=== PATIENT | female | born 1990 | race Caucasian/White ===

== ENCOUNTER 2020-07-17 21:08 | Emergency (ER) | payer MEDICAID ==
[~2020-07-17] VITALS: Ht 162.6 cm; Wt 77.1 kg
--- NOTE | 2020-07-17 21:13 | NUR ---
Patient to ER bed 3 to gown for evaluation. Side rails up. Report given to TONY PEREZ.
[2020-07-17 21:14] VITALS: BP_SYST 122
--- NOTE | 2020-07-17 21:25 | NUR ---
DR FALL IN TO ASSESS. PT MOANING,RESTLESS, C/O ABD PAIN
[2020-07-17 21:28] LABS: BILIRUBIN,URINE NEGATIVE (NEGATIVE); BLOOD, URINE NEGATIVE (NEGATIVE); COLOR,URINE YELLOW (YELLOW); GLUCOSE,URINE NEGATIVE (NEGATIVE); KETONES,URINE 2+ (NEGATIVE); LEUKOCYTE ESTERASE ,URINE NEGATIVE (NEGATIVE); NITRITE, URINE NEGATIVE (NEGATIVE); PH,URINE 8.5 (5.0-8.0); PROTEIN URINE TRACE (NEGATIVE)
[2020-07-17] MEDS ORDERED: MORPHINE 4 MG/ML INJ. SYRINGE IVP ONE (21:30)
[2020-07-17] MEDS ORDERED: ONDANSETRON HCL 4 MG/2 ML VIAL IVP ONE (21:30)
[2020-07-17] MEDS ORDERED: NACL 0.9% 1,000 ML IV SCH (21:30)
--- NOTE | 2020-07-17 21:30 | NUR ---
MEDICATED ORDERED, ON MONITOR, RESP UNLABORED, SKIN WARM AND DRY. COMMUNICATES CLEARLY IN FULL COMPLETE SENTNECES
[2020-07-17 21:32] LABS: WHITE BLOOD COUNT (AUTO) 10.7 K/uL (4.8-10.8)
[2020-07-17 21:37] LABS: CLARITY/URINE HAZY (CLEAR)
[2020-07-17 21:38] LABS: RBC,URINE NONE SEEN /HPF (0-3)
[2020-07-17 21:39] LABS: BASOPHILS % (AUTO) 0.3 % (0.0-2.0); EOSINOPHILS % (AUTO) 0.4 % (0.0-4.0); HEMATOCRIT 39.7 % (36-48); HEMOGLOBIN 13.2 g/dL (12.0-16.0); LYMPHOCYTES # (AUTO) 1.1 K/uL (1.0-5.5); LYMPHOCYTES % (AUTO) 9.9 % (20.5-51.5); MEAN CORPUSCULAR HEMOGLOBIN 29 pg (27-31); MEAN CORPUSCULAR HGB CONC 33 % (32-36); MEAN CORPUSCULAR VOLUME 88 fL (79.0-98.0); MONOCYTES # (AUTO) 0.7 K/uL (0.0-1.0); MONOCYTES % (AUTO) 6.2 % (1.7-9.3); NEUTROPHILS # (AUTO) 8.9 K/uL (1.8-7.7); NEUTROPHILS % (AUTO) 83.2 % (40.0-70.0); PLATELET COUNT (AUTO) 224 K/uL (130-430); RED BLOOD CELL COUNT(AUTO) 4.52 MIL/uL (4.2-6.2); RED CELL DISTRIBUTION WIDTH 13.3 % (9.0-15.0)
[2020-07-17 21:39] LABS: BACTERIA,URINE FEW /HPF (None Seen); MUCUS,URINE None Seen /LPF (None Seen); URINE AMORPHOUS PHOSPHATES 2+ /HPF (None Seen); WBC,URINE 0-3 /HPF (0-3)
[2020-07-17 21:45] LABS: CALCIUM 9.9 mg/dL (8.4-11.0); CREATININE 0.85 mg/dL (0.55-1.30); POTASSIUM 3.3 mmol/L (3.5-5.1)
[2020-07-17 21:51] LABS: ALBUMIN 4.1 g/dL (3.4-4.8); TOTAL BILIRUBIN 0.4 mg/dL (0.0-1.0)
--- NOTE | 2020-07-17 22:00 | NUR ---
RESTING COMFORTABLE, REPORT GOOD PAIN CONTROL WITH MEDS, RESP UNLABORED, NO DISTRESS
--- NOTE | 2020-07-17 22:10 | NUR ---
OFF TO ULTRASOUND VIA WHEELCHAIR
[2020-07-17] MEDS ORDERED: fentaNYL CITRATE/PF 100 MCG/2 ML AMP IVP ONE (22:30)
[2020-07-17] MEDS ORDERED: KETOROLAC TROMETHAMINE 30 MG VIAL ONE (22:43)
[2020-07-17] MEDS ORDERED: KETOROLAC TROMETHAMINE 30 MG VIAL IVP ONE (22:45)
--- NOTE | 2020-07-17 22:46 | NUR ---
DR FALL IN TO REASSESS
[2020-07-17] MEDS ORDERED: HYDR-4272 PO (22:47)
[2020-07-17] MEDS ORDERED: ONDA-8 TL (22:47)
[2020-07-17 22:58] VITALS: BP_SYST 121
--- NOTE | 2020-07-17 22:59 | NUR ---
Patient given written and verbal discharge instructions and verbalizes understanding. ER MD discussed with patient the results and treatment provided. Patient in stable condition. ID arm band removed. IV catheter removed intact and dressing applied, no active bleeding. Rx of NORCO given. Patient educated on pain management and to follow up with PMD. Pain Scale 3/10 Opportunity for questions provided and answered. Medication side effect fact sheet provided.
== END 2020-07-17 22:58 | disposition home or self-care (01) ==
LOC: SED 21:08
DX: K80.20 Calculus of gallbladder without cholecystitis without obstruction (principal); Z88.0 Allergy status to penicillin
CPT/HCPCS: 36415; 76700; 80053; 81000; 81025; 83690; 85025; 96361; 96374; 96375; 99284; J1885; J2270; J2405; J7030

== ENCOUNTER 2020-07-19 19:39 | Inpatient (IN) | payer MEDICAID, SELFPAY ==
[~2020-07-19] VITALS: Ht 162.6 cm; Wt 85.7 kg
[~2020-07-19 19:39] MED LIST: CEFAZOLIN 2 GM IVPB PREMIX 50 ML IV ONE; DEXAMETHASONE SOD PHOSPHATE 4 MG/ML VIAL IVP ONE; GLYCOPYRROLATE 0.2 MG/ML VIAL IJ ONE; HYDR-4272 PO; HYDROmorphone 2 MG/ML VIAL IVP ONE; IOHEXOL 300 mgI/mL, 50 mL INFUS..BTL IV ONE; KETOROLAC TROMETHAMINE 30 MG VIAL IVP ONE; LIDOCAINE 1% 10 MG/ML, 20 ML MDV IM ONE; LR 1,000 ML IV.SOLN IV ONE; MEPERIDINE HCL/PF 100 MG/ML VIAL IM ONE; METOCLOPRAMIDE HCL 10 MG/2 ML VIAL IVP ONE; NS 1000 ML IV.SOLN IV ONE; NS IRRIG SOLN 1000 ML IR ONE; ONDA-8 TL; ONDANSETRON HCL 4 MG/2 ML VIAL IVP ONE; PHENYLEPHRINE HCL 10 MG/ML VIAL (NEOSYNEPHRINE) IV ONE; PROPOFOL 200MG/ 20ML VIAL (DIPRIVAN) IV ONE; ROCURONIUM BROMIDE 10 MG/ML (ZEMURON) IV ONE; SEVOFLURANE 15 MIN GAS INH ONE; SUCCINYLCHOLINE CHLORIDE 20 MG/ML(QUELICIN) IVP ONE; fentaNYL CITRATE/PF 100 MCG/2 ML AMP IVP ONE
[2020-07-19 19:42] VITALS: BP_SYST 162
[2020-07-19] MEDS ORDERED: NACL 0.9% 1,000 ML IV ONE (20:30)
[2020-07-19] MEDS ORDERED: NACL 0.9% 2,000 ML IV ONE (20:30)
[2020-07-19] MEDS ORDERED: ONDANSETRON HCL 4 MG/2 ML VIAL IVP ONE (20:30)
[2020-07-19] MEDS ORDERED: MORPHINE 4 MG/ML INJ. SYRINGE IVP ONE (20:30)
[2020-07-19] MEDS ORDERED: MORPHINE 4 MG/ML INJ. SYRINGE ONE (20:30)
[2020-07-19 20:31] LABS: BASOPHILS % (AUTO) 0.5 % (0.0-2.0); EOSINOPHILS # (AUTO) 0.2 K/uL (0.0-0.4); HEMATOCRIT 37.7 % (36-48); HEMOGLOBIN 12.5 g/dL (12.0-16.0); LYMPHOCYTES # (AUTO) 1.4 K/uL (1.0-5.5); LYMPHOCYTES % (AUTO) 15.5 % (20.5-51.5); MEAN CORPUSCULAR HEMOGLOBIN 30 pg (27-31); MEAN CORPUSCULAR HGB CONC 33 % (32-36); MEAN CORPUSCULAR VOLUME 89 fL (79.0-98.0); MONOCYTES # (AUTO) 0.6 K/uL (0.0-1.0); MONOCYTES % (AUTO) 5.9 % (1.7-9.3); NEUTROPHILS # (AUTO) 7.1 K/uL (1.8-7.7); NEUTROPHILS % (AUTO) 76.1 % (40.0-70.0); PLATELET COUNT (AUTO) 226 K/uL (130-430); RED BLOOD CELL COUNT(AUTO) 4.23 MIL/uL (4.2-6.2); RED CELL DISTRIBUTION WIDTH 13.1 % (9.0-15.0); WHITE BLOOD COUNT (AUTO) 9.4 K/uL (4.8-10.8)
[2020-07-19 20:44] LABS: CALCIUM 8.9 mg/dL (8.4-11.0); CREATININE 0.78 mg/dL (0.55-1.30); POTASSIUM 3.3 mmol/L (3.5-5.1)
[2020-07-19 20:53] LABS: ALBUMIN 3.8 g/dL (3.4-4.8); TOTAL BILIRUBIN 0.7 mg/dL (0.0-1.0)
[2020-07-19 21:21] LABS: BILIRUBIN,URINE 1+ (NEGATIVE); BLOOD, URINE NEGATIVE (NEGATIVE); CLARITY/URINE CLEAR (CLEAR); COLOR,URINE YELLOW (YELLOW); GLUCOSE,URINE NEGATIVE (NEGATIVE); KETONES,URINE 1+ (NEGATIVE); LEUKOCYTE ESTERASE ,URINE NEGATIVE (NEGATIVE); NITRITE, URINE NEGATIVE (NEGATIVE); PROTEIN URINE NEGATIVE (NEGATIVE)
[2020-07-19] MEDS ORDERED: ONDANSETRON HCL 4 MG/2 ML VIAL IVP PRN (22:15)
[2020-07-19] MEDS ORDERED: MORPHINE 2 MG/ML INJ. SYRINGE IVP PRN (22:15)
[2020-07-19] MEDS: D5/0.45 NS 1,000 ML IV SCH (23:25)
[2020-07-20 00:27] VITALS: BP_SYST 98
[2020-07-20] MEDS: MORPHINE 2 MG/ML INJ. SYRINGE IVP PRN (02:56)
[2020-07-20 06:50] LABS: BASOPHILS % (AUTO) 0.5 % (0.0-2.0); EOSINOPHILS # (AUTO) 0.1 K/uL (0.0-0.4); EOSINOPHILS % (AUTO) 2.1 % (0.0-4.0); HEMATOCRIT 33.8 % (36-48); HEMOGLOBIN 11.3 g/dL (12.0-16.0); LYMPHOCYTES # (AUTO) 1.6 K/uL (1.0-5.5); LYMPHOCYTES % (AUTO) 39.1 % (20.5-51.5); MEAN CORPUSCULAR HEMOGLOBIN 30 pg (27-31); MEAN CORPUSCULAR HGB CONC 33 % (32-36); MEAN CORPUSCULAR VOLUME 89 fL (79.0-98.0); MONOCYTES # (AUTO) 0.3 K/uL (0.0-1.0); MONOCYTES % (AUTO) 7.9 % (1.7-9.3); NEUTROPHILS # (AUTO) 2.1 K/uL (1.8-7.7); NEUTROPHILS % (AUTO) 50.4 % (40.0-70.0); PLATELET COUNT (AUTO) 187 K/uL (130-430); RED BLOOD CELL COUNT(AUTO) 3.79 MIL/uL (4.2-6.2); RED CELL DISTRIBUTION WIDTH 13.1 % (9.0-15.0); WHITE BLOOD COUNT (AUTO) 4.1 K/uL (4.8-10.8)
[2020-07-20 07:06] LABS: PROTHROMBIN TIME 9.9 SECS (9.5-12.5)
[2020-07-20 07:24] LABS: ALBUMIN 3.1 g/dL (3.4-4.8); CALCIUM 7.7 mg/dL (8.4-11.0); CREATININE 0.7 mg/dL (0.55-1.30); THYROID STIMULATING HORMONE 2.11 uIu/mL (0.36-3.74); TOTAL BILIRUBIN 0.4 mg/dL (0.0-1.0)
[2020-07-20 08:14] VITALS: BP_SYST 107
[2020-07-20 12:20] VITALS: BP_SYST 103
[2020-07-20] MEDS ORDERED: LORazepam 2 MG/ML VIAL ONE (14:29)
[2020-07-20] MEDS ORDERED: LORazepam 2 MG/ML VIAL IVP ONE (14:30)
[2020-07-20] MEDS ORDERED: POTASSIUM CHLORIDE 20 MEQ/PKT PACKET PO ONE (14:45)
[2020-07-20] MEDS: D5/0.45 NS 1,000 ML IV SCH (16:53)
[2020-07-20 20:00] VITALS: BP_SYST 112
[2020-07-21] VITALS: BP_SYST 96
[2020-07-21 08:32] LABS: CALCIUM 9.2 mg/dL (8.4-11.0); CREATININE 0.72 mg/dL (0.55-1.30); POTASSIUM 4.2 mmol/L (3.5-5.1)
[2020-07-21 10:37] VITALS: BP_SYST 106
[2020-07-21 11:23] LABS: BASOPHILS % (AUTO) 0.7 % (0.0-2.0); EOSINOPHILS # (AUTO) 0.2 K/uL (0.0-0.4); EOSINOPHILS % (AUTO) 3.6 % (0.0-4.0); HEMATOCRIT 40.5 % (36-48); HEMOGLOBIN 13.6 g/dL (12.0-16.0); LYMPHOCYTES # (AUTO) 1.8 K/uL (1.0-5.5); LYMPHOCYTES % (AUTO) 37.8 % (20.5-51.5); MEAN CORPUSCULAR HEMOGLOBIN 30 pg (27-31); MEAN CORPUSCULAR HGB CONC 34 % (32-36); MEAN CORPUSCULAR VOLUME 88 fL (79.0-98.0); MONOCYTES # (AUTO) 0.4 K/uL (0.0-1.0); MONOCYTES % (AUTO) 7.8 % (1.7-9.3); NEUTROPHILS # (AUTO) 2.3 K/uL (1.8-7.7); NEUTROPHILS % (AUTO) 50.1 % (40.0-70.0); PLATELET COUNT (AUTO) 226 K/uL (130-430); RED BLOOD CELL COUNT(AUTO) 4.59 MIL/uL (4.2-6.2); RED CELL DISTRIBUTION WIDTH 13.1 % (9.0-15.0); WHITE BLOOD COUNT (AUTO) 4.7 K/uL (4.8-10.8)
[2020-07-21] MEDS ORDERED: DEXTROSE 50% JECT 50 ML DISP.SYRIN IVP ONE (11:45)
[2020-07-21 12:20] VITALS: BP_SYST 111
[2020-07-21] MEDS ORDERED: MEPERIDINE HCL/PF 25 MG/ML DISP.SYRIN IVP PRN (13:15)
[2020-07-21] MEDS ORDERED: HYDROmorphone 2 MG/ML VIAL IVP PRN (13:15)
[2020-07-21] MEDS ORDERED: LR 1,000 ML IV SCH (13:15)
[2020-07-21] MEDS ORDERED: fentaNYL CITRATE/PF 100 MCG/2 ML AMP IVP PRN (13:15)
[2020-07-21 13:54] VITALS: BP_SYST 111
[2020-07-21] MEDS: D5/0.45 NS 1,000 ML IV SCH (15:43)
[2020-07-21 16:00] VITALS: BP_SYST 118
[2020-07-21 20:00] VITALS: BP_SYST 107
[2020-07-22 01:07] VITALS: BP_SYST 104
[2020-07-22] MEDS: MORPHINE 2 MG/ML INJ. SYRINGE IVP PRN ×5 (01:11→21:14)
[2020-07-22 07:50] VITALS: BP_SYST 97
[2020-07-22 12:19] VITALS: BP_SYST 100
[2020-07-22] MEDS: D5/0.45 NS 1,000 ML IV SCH (13:26)
[2020-07-22 16:56] VITALS: BP_SYST 102
[2020-07-22 20:00] VITALS: BP_SYST 104
[2020-07-23 00:04] VITALS: BP_SYST 92
[2020-07-23] MEDS: MORPHINE 2 MG/ML INJ. SYRINGE IVP PRN (05:47)
[2020-07-23] MEDS: D5/0.45 NS 1,000 ML IV SCH (05:56)
[2020-07-23 08:55] VITALS: BP_SYST 90
[2020-07-23 11:08] VITALS: BP_SYST 95
[2020-07-23 14:02] VITALS: BP_SYST 94
[2020-07-23] MEDS ORDERED: IBUP-1971 PO (14:09)
== END 2020-07-23 14:15 | disposition home or self-care (01) ==
LOC: SED 19:39 → STU 22:11
PROVIDERS: ADMIT Internal Medicine; ATTEND Internal Medicine
PROC: BF131ZZ Fluoroscopy of Gallbladder and Bile Ducts using Low Osmolar Contrast (ICD-10-PCS; principal; 2020-07-21 12:17)
DX: K80.50 Calculus of bile duct without cholangitis or cholecystitis without obstruction (principal); Z20.822 Contact with and (suspected) exposure to COVID-19; Z88.0 Allergy status to penicillin; Z79.891 Long term (current) use of opiate analgesic; Z79.1 Long term (current) use of non-steroidal anti-inflammatories (NSAID)
CPT/HCPCS: 36415; 74181; 74300; 76376; 78226; 80048; 80053; 80061; 81003; 82962; 83605; 83690-TC; 84443-TC; 84702-TC; 84703; 85025; 85610-TC; 85730-TC; 87040-TC; 87081; 88304; 94010; 96361; 96374; 96375; A9537; G0378; J0330; J0690; J1100; J1170; J1885; J2001; J2060; J2175; J2270; J2370; J2405; J2704; J2765; J3010; J3490; J7030; J7120; Q9967

== ENCOUNTER 2020-12-06 16:04 | Emergency (ER) | payer MEDICAID, SELFPAY ==
[~2020-12-06] VITALS: Ht 162.6 cm; Wt 80.3 kg
[~2020-12-06 16:04] MED LIST changes: -CEFAZOLIN 2 GM IVPB PREMIX 50 ML IV ONE; -DEXAMETHASONE SOD PHOSPHATE 4 MG/ML VIAL IVP ONE; -GLYCOPYRROLATE 0.2 MG/ML VIAL IJ ONE; -HYDROmorphone 2 MG/ML VIAL IVP ONE; +IBUP-1971 PO; -IOHEXOL 300 mgI/mL, 50 mL INFUS..BTL IV ONE; -KETOROLAC TROMETHAMINE 30 MG VIAL IVP ONE; -LIDOCAINE 1% 10 MG/ML, 20 ML MDV IM ONE; -LR 1,000 ML IV.SOLN IV ONE; -MEPERIDINE HCL/PF 100 MG/ML VIAL IM ONE; -METOCLOPRAMIDE HCL 10 MG/2 ML VIAL IVP ONE; -NS 1000 ML IV.SOLN IV ONE; -NS IRRIG SOLN 1000 ML IR ONE; -ONDANSETRON HCL 4 MG/2 ML VIAL IVP ONE; -PHENYLEPHRINE HCL 10 MG/ML VIAL (NEOSYNEPHRINE) IV ONE; -PROPOFOL 200MG/ 20ML VIAL (DIPRIVAN) IV ONE; -ROCURONIUM BROMIDE 10 MG/ML (ZEMURON) IV ONE; -SEVOFLURANE 15 MIN GAS INH ONE; -SUCCINYLCHOLINE CHLORIDE 20 MG/ML(QUELICIN) IVP ONE; -fentaNYL CITRATE/PF 100 MCG/2 ML AMP IVP ONE
[2020-12-06 16:07] VITALS: BP_SYST 110
[2020-12-06 16:43] LABS: BASOPHILS % (AUTO) 0.4 % (0.0-2.0); EOSINOPHILS # (AUTO) 0.1 K/uL (0.0-0.4); EOSINOPHILS % (AUTO) 1.9 % (0.0-4.0); HEMATOCRIT 38.9 % (36-48); HEMOGLOBIN 13.3 g/dL (12.0-16.0); LYMPHOCYTES # (AUTO) 2.5 K/uL (1.0-5.5); LYMPHOCYTES % (AUTO) 34.6 % (20.5-51.5); MEAN CORPUSCULAR HEMOGLOBIN 30 pg (27-31); MEAN CORPUSCULAR HGB CONC 34 % (32-36); MEAN CORPUSCULAR VOLUME 87 fL (79.0-98.0); MONOCYTES # (AUTO) 0.5 K/uL (0.0-1.0); MONOCYTES % (AUTO) 6.6 % (1.7-9.3); NEUTROPHILS # (AUTO) 4.1 K/uL (1.8-7.7); NEUTROPHILS % (AUTO) 56.5 % (40.0-70.0); PLATELET COUNT (AUTO) 216 K/uL (130-430); RED BLOOD CELL COUNT(AUTO) 4.47 MIL/uL (4.2-6.2); RED CELL DISTRIBUTION WIDTH 14.3 % (9.0-15.0); WHITE BLOOD COUNT (AUTO) 7.3 K/uL (4.8-10.8)
[2020-12-06 17:04] LABS: CALCIUM 9.5 mg/dL (8.4-11.0); CREATININE 0.64 mg/dL (0.55-1.30)
[2020-12-06 17:14] LABS: BILIRUBIN,URINE NEGATIVE (NEGATIVE); BLOOD, URINE 3+ (NEGATIVE); COLOR,URINE YELLOW (YELLOW); GLUCOSE,URINE NEGATIVE (NEGATIVE); KETONES,URINE NEGATIVE (NEGATIVE); LEUKOCYTE ESTERASE ,URINE NEGATIVE (NEGATIVE); NITRITE, URINE NEGATIVE (NEGATIVE); PROTEIN URINE NEGATIVE (NEGATIVE); UROBILINOGEN,URINE 0.2 (0.2-1.0)
[2020-12-06 17:24] LABS: CLARITY/URINE HAZY (CLEAR)
[2020-12-06 17:30] LABS: ALBUMIN 3.7 g/dL (3.4-4.8); TOTAL BILIRUBIN 0.2 mg/dL (0.0-1.0)
[2020-12-06 17:56] LABS: BACTERIA,URINE MODERATE /HPF (None Seen); MUCUS,URINE None Seen /LPF (None Seen)
[2020-12-06 18:03] VITALS: BP_SYST 110
== END 2020-12-06 18:03 | disposition home or self-care (01) ==
LOC: SED 16:04
DX: O20.9 Hemorrhage in early pregnancy, unspecified (principal); Z88.0 Allergy status to penicillin; Z79.899 Other long term (current) drug therapy; Z3A.01 Less than 8 weeks gestation of pregnancy
CPT/HCPCS: 36415; 76801; 76817; 80053; 81000; 81025; 84702; 85025; 85610-TC; 86900; 86901; 87086; 99284

== ENCOUNTER 2020-12-07 00:22 | Emergency (ER) | payer MEDICAID ==
[~2020-12-07] VITALS: Ht 162.6 cm; Wt 80.3 kg
[2020-12-07 01:25] VITALS: BP_SYST 103
[2020-12-07 02:24] LABS: BASOPHILS % (AUTO) 0.4 % (0.0-2.0); EOSINOPHILS # (AUTO) 0.1 K/uL (0.0-0.4); EOSINOPHILS % (AUTO) 0.7 % (0.0-4.0); HEMATOCRIT 35.8 % (36-48); HEMOGLOBIN 12.1 g/dL (12.0-16.0); LYMPHOCYTES # (AUTO) 1.7 K/uL (1.0-5.5); LYMPHOCYTES % (AUTO) 17.8 % (20.5-51.5); MEAN CORPUSCULAR HEMOGLOBIN 30 pg (27-31); MEAN CORPUSCULAR HGB CONC 34 % (32-36); MEAN CORPUSCULAR VOLUME 89 fL (79.0-98.0); MONOCYTES # (AUTO) 0.5 K/uL (0.0-1.0); MONOCYTES % (AUTO) 5.4 % (1.7-9.3); NEUTROPHILS # (AUTO) 7.4 K/uL (1.8-7.7); NEUTROPHILS % (AUTO) 75.7 % (40.0-70.0); PLATELET COUNT (AUTO) 231 K/uL (130-430); RED BLOOD CELL COUNT(AUTO) 4.03 MIL/uL (4.2-6.2); RED CELL DISTRIBUTION WIDTH 14.1 % (9.0-15.0); WHITE BLOOD COUNT (AUTO) 9.8 K/uL (4.8-10.8)
[2020-12-07 02:41] LABS: CREATININE 0.72 mg/dL (0.55-1.30); POTASSIUM 3.9 mmol/L (3.5-5.1)
[2020-12-07 03:15] LABS: ALBUMIN 3.6 g/dL (3.4-4.8); TOTAL BILIRUBIN 0.3 mg/dL (0.0-1.0)
[2020-12-07 03:40] VITALS: BP_SYST 110
== END 2020-12-07 03:40 | disposition home or self-care (01) ==
LOC: SED 00:22
DX: O03.9 Complete or unspecified spontaneous abortion without complication (principal); Z88.0 Allergy status to penicillin; Z79.899 Other long term (current) drug therapy
CPT/HCPCS: 36415; 80053; 84702; 85025; 99283; 99284